=== PATIENT | male | born 1940 | race Caucasian/White ===

== ENCOUNTER 2025-01-25 19:57 | Emergency (ER) | payer OTHER, SELFPAY ==
[2025-01-25 20:07] VITALS: BP 126/80
[2025-01-25 20:26] LABS: Urine Albumin Negative (Neg - Trace); Urine Bilirubin Negative (Negative); Urine Character Clear (Clear); Urine Color Yellow; Urine Glucose Negative (Negative); Urine Ketone Negative (Negative); Urine Leukocyte 1+ (Negative); Urine Nitrite Negative (Negative); Urine Occult Blood Negative (Negative); Urine Urobilinogen Negative (Neg - 1+)
[2025-01-25 20:28] LABS: % Basophils 0.6 % (0-2); % Eosinophils 2.5 % (0-6); % Immature Granulocytes 0.3 % (0-0.5); % Lymphocytes 34.8 % (20.5-51.1); % Monocytes 11.1 % (1.7-9.3); % Neutrophils 50.7 % (42.2-75.2); Absolute Basophils 0.1 10^3/uL (0-0.2); Absolute Eosinophils 0.2 10^3/uL (0-0.7); Absolute Lymphocytes 3.2 10^3/uL (1.2-3.4); Absolute Neutrophils 4.7 10^3/uL (1.4-6.5); Hematocrit 40.4 % (39.0-52.0); Hemoglobin 14.4 g/dL (13.0-18.0); Mean Corp Hgb Conc. 35.6 g/dL (33.0-37.0); Mean Corpuscular Hgb 28.7 pg (27.0-31.0); Mean Corpuscular Volume 80.5 fL (80.0-94.0); Nucleated Red Blood Cells % 0 % (-); Platelet Count 182 10^3/uL (130-400); Red Blood Cell Count 5.02 10^6/uL (4.70-6.10); Red Cell Dist. Width 13.9 % (11.5-14.5); White Blood Cell Count 9.3 10^3/uL (4.8-10.8)
[2025-01-25 20:46] LABS: ALT (SGPT) 18 U/L (0-50); AST (SGOT) 23 U/L (17-59); Albumin 4.5 g/dl (3.5-5.0); Alkaline Phosphatase 90 U/L (38-126); Blood Urea Nitrogen 37 mg/dl (9-20); Calcium 9.3 mg/dl (8.4-10.2); Carbon Dioxide 22 mmol/L (22-30); Chloride 111 mmol/L (98-107); Glucose 125 mg/dl (70-99); Lipase 178 U/L (23-300); Potassium 3.9 mmol/L (3.5-5.1); Sodium 143 mmol/L (135-145); Total Bilirubin 2.4 mg/dl (0.2-1.3); Total Protein 7.3 g/dl (6.3-8.2); eGFR 58.89
[2025-01-25 20:48] LABS: Urine Bacteria Few (Negative); Urine Hyaline Cast >15 /LPF (0-2); Urine Red Blood Cell 0-2 /HPF (0-2)
[2025-01-25 22:23] VITALS: BP 124/68
[2025-01-26 01:04] VITALS: BMI 24.2
[2025-01-26 01:22] VITALS: BP 137/73
[2025-01-26 02:51] VITALS: BP 119/77
--- NOTE | 2025-01-26 04:33 | ED.GENMED ---
History of Present Illness
General
Chief Complaint: Flank Pain
Source: patient
Exam Limitations: none
Time Seen by Provider: 01/26/25 00:25
Nursing documentation reviewed up to this point in time: agreed with
History of Present Illness
History of Present Illness:
The patient is an 84-year-old male with past medical history of GERD hypertension previous kidney stones presenting to the emergency department today with concerns of has had some loose bowel movements denies any nausea vomiting fevers. Left-sided
flank pain intermittently over the past 4 days.
Past History
Past History
ED Past Medical History: HTN and Other
ED Past Surgical History: Urological
Social History
Tobacco: Non-smoker
Alcohol: None
Drug: None
Review of Systems
Review of Systems
Allergies reviewed?: Yes
All Other Systems: ROS reviewed and negative except as documented in HPI and ROS
Phy Exam
Physical Exam
Physical Exam:
GENERAL: Alert , in no apparent distress
EYE: pupils equal and reactive
NECK: Supple, no significant adenopathy.
ENT: o/p clr, mmm.
CARDIAC: Regular rate and rhythm .
LUNGS: Clear breath sounds bilaterally, no acute respiratory distress, no wheezes/rales/rhonchi
ABDOMEN: Soft, without focal tenderness, no r/g, no cvat
NEUROLOGICAL: Alert and oriented, no focal neuro deficits
SKIN: Warm and dry, skin intact.
MUSCULOSKELETAL: No edema, well perfused.
PSYCH: Normal and appropriate interaction.
Course
Orders/Labs/Results
Orders:
Orders
01/25/25 20:20
Complete Blood Count/With Diff Urgent
Comprehensive Metabolic Panel Urgent
Lipase Urgent
Urinalysis Reflex To Culture Urgent
Date Specimen was Collected: 01/25/25
Time Specimen was Collected: 20:11
Urine Microscopic Reflex Cult Urgent
Urine Culture Urgent
RAEANN Source: U
Specimen Description:
Date Specimen was Collected: 01/25/25
Time Specimen was Collected: 20:11
01/26/25 01:27
CT Abd/pel Without Iv Or Oral Urgent
Comment:
Reason For Exam: left flank pain
01/26/25 03:00
ECG [Electrocardiogram (*1)] Urgent
Reason for Study: Bradycardia / Tachycardia
Cardiology Consult: Unknown
EKG- Treatment ONCE
Abnormal Lab Results
01/25/25
20:20
MPV 11.0 H fL
(7.4-10.4)
Absolute Monos (auto) 1.0 H 10^3/uL
(0.1-0.6)
Monocytes % 11.1 H %
(1.7-9.3)
Chloride 111 H mmol/L
(98-107)
BUN 37 H mg/dl
(9-20)
Glucose 125 H mg/dl
(70-99)
Total Bilirubin 2.4 H mg/dl
(0.2-1.3)
Leukocyte Esterase Rfl 1+ A
(Negative)
Urine WBC (Reflex) 11-15 A /HPF
(0-5)
Urine Bacteria (Reflex) Few A
(Negative)
01/25/25 20:20
01/25/25 20:20
Vital Signs
Initial and Last Documented VS:
Initial Vital Signs
Temp Pulse Resp BP Pulse Ox
98.5 F 66 20 126/80 97
01/25/25 20:07 01/25/25 20:07 01/25/25 20:07 01/25/25 20:07 01/25/25 20:07
Last Documented Vital Signs
Temp Pulse Resp BP Pulse Ox
98.5 F 48 20 119/77 99
01/25/25 20:07 01/26/25 02:51 01/26/25 02:51 01/26/25 02:51 01/26/25 02:51
MDM/Problems Addressed
MDM/Problems Addressed:
84-year-old male presenting to the emergency department today with concerns of 4 days of intermittent left-sided flank pain. Denies nausea vomiting. Upon arrival vital signs are normal patient no distress. Labs showing elevated bilirubin which
has been elevated in the past otherwise labs unremarkable. Urinalysis with some white blood cells few bacteria. CT scan showing 3 mm nonobstructing stone. Case discussed with urology considering white blood cells in the urine which seems less
likely represent any significant infection. Plan to treat as outpatient with close outpatient follow-up. Return precautions given.
*Critical Care Note
Total Time (30-74mins, 75-104mins- exclusive of procedures): Not Applicable
ED Attending Note
-
Portions of this chart may have been created with voice recognition software.� Occasional wrong word or��sound alike� substitutions may have occurred due to the inherent limitations of voice recognition software.
Discharge Plan
Departure
Patient Disposition: Home (Routine Discharge)
Date of Disposition: 01/26/25
Time of Disposition: 04:35
Patient with high blood pressure during this ER visit?: No
Condition: Good
Covid-19: Not Applicable
Discharge Problem:
Kidney stone
Instructions: Kidney Stones (DC)
Prescriptions:
New
cephalexin 500 mg capsule
500 mg PO TID 7 Days Qty: 21 0RF
tamsulosin [Flomax] 0.4 mg capsule
0.4 mg PO HS 7 Days Qty: 7 0RF
No Action
docusate sodium [Colace] 100 mg Capsule
100 mg PO DAILY PRN (Reason: constipation)
pantoprazole 40 mg Tablet,Delayed Release (Dr/Ec)
40 mg PO BID 30 Days Qty: 60 1RF
lisinopril 10 mg Tablet
10 mg PO DAILY Qty: 30 1RF
pantoprazole [Protonix] 40 mg tablet,delayed release (DR/EC)
40 mg PO DAILY Qty: 30 3RF
Rx Instructions:
place this on hold until the BID scripts run out then can fill this.
Referrals:
Chilo Blum MD [Active, Urology]
UNKNOWN - PT DOES,NOT KNOW [Family Provider]
Activity Restrictions/Additional Instructions:
You came to the emergency department today with concerns of flank pain. You are found to have a kidney stone. Please take the prescribed medications to help with symptoms and to reduce risk of infection follow-up closely with urology. Return for
any worsening, new or concerning symptoms.
Interventions
Interventions:
*Risk Screen - Suicide Last Done: 01/25/25 20:07
*General Assessment Last Done: 01/25/25 20:07
*Neglect/Abuse Screening Last Done: 01/25/25 20:07
*ED- Fall Risk Assessment Last Done: 01/26/25 00:57
*ED COVID-19 Vaccine History Last Done: 01/26/25 00:57
DX-Ocsrcu-Udifyxneyq Assessment Last Done: 01/26/25 00:57
ED-Male Genitourinary Assessment Last Done: 01/26/25 00:57
Discharge Date and Time
Print Language: HUNGARIAN
[2025-01-26] MEDS: KEFLEX 500 MG PO (04:50)
[2025-01-26] MEDS: FLOMAX 0.4 MG PO (04:50)
== END 2025-01-26 05:24 | disposition home or self-care (01) ==
LOC: EMR 19:57
PROVIDERS: Emergency Medicine; EMERGENCY PHYSICIAN Student in an Organized Health Care Education/Training Program
DX: N20.0 Calculus of kidney (principal); K21.9 Gastro-esophageal reflux disease without esophagitis; I10 Essential (primary) hypertension; Z87.442 Personal history of urinary calculi
CPT/HCPCS: 99284; 74176; 80053; 81003; 81015; 83690; 85025; 87086

== ENCOUNTER → 2025-02-21 12:02 | Outpatient (REF) | payer OTHER, SELFPAY | LOC: HWRAD 12:02 | PROVIDERS: ATTENDING PHYSICIAN Specialist; FAMILY PHYSICIAN Family Medicine | DX: N20.0 Calculus of kidney (principal) | CPT/HCPCS: 74018 ==

== ENCOUNTER → 2025-03-07 10:21 | Outpatient (REF) | payer OTHER, SELFPAY | LOC: HWRAD 10:21 | PROVIDERS: ATTENDING PHYSICIAN Specialist; FAMILY PHYSICIAN Family Medicine | DX: N20.0 Calculus of kidney (principal); N20.1 Calculus of ureter | CPT/HCPCS: 74176 ==

== ENCOUNTER 2025-03-27 06:05 | Day surgery (SDC) | payer OTHER, SELFPAY ==
[2025-03-21 14:20] VITALS: BMI 26.0
[2025-03-27] VITALS (8 sets, daily range): BP systolic 142–172; BP diastolic 72–96; BMI 26.0
[2025-03-27] MEDS: NORMOSOL-R/PLASMALYTE-A 1000 IV (06:57)
[2025-03-27] MEDS: TYLENOL 1000 MG PO (07:10)
[2025-03-27] MEDS: TORADOL 15 MG IV (08:34)
[2025-03-27] MEDS: ROXICODONE 5 MG PO (10:04)
== END 2025-03-27 10:45 | disposition home or self-care (01) ==
LOC: SDS 06:05
PROVIDERS: ATTENDING PHYSICIAN Specialist; FAMILY PHYSICIAN Family Medicine
DX: N20.0 Calculus of kidney (principal)
CPT/HCPCS: 52356; 36415; 74018; 76000; 93005; C1894; C2617